=== PATIENT | male | born 1945 | race African-American/Black ===

== ENCOUNTER → 2017-06-27 | Outpatient (CLI) | payer MEDICARE, OTHER ==
[~2017-06-27] MED LIST: ASPI-482 PO; B CO1TAB10 PO; CANA300T PO; CHOL500045 PO; DABI150C PO; FISH1CAP PO; FURO40TA4 PO; GLIM4TAB2 PO; METF-620 PO; POTA20TA4 PO; SIMV20TA3 PO; SITA100T PO; SOTA150V PO; SOTA80TA48 PO
[2017-06-27 11:32] LABS: BASO % 1 % (0-3); EOS % 1 % (0-3); HEMATOCRIT 33.7 % (39.0-53.0); HEMOGLOBIN 10.7 g/dL (13.0-17.5); LYMPH % 20 % (24-48); MEAN CORPUSCULAR HEMOGLOBIN 27 pg (25-35); MEAN CORPUSCULAR HGB CONC 32 g/dL (31-37); MEAN CORPUSCULAR VOLUME 84 fL (79-100); MONO % 12 % (0-9); NEUT % 67 % (31-73); PLATELET COUNT 250 x10^3/uL (140-400); RED BLOOD COUNT 4.03 x10^6/uL (4.30-5.70); RED CELL DISTRIBUTION WIDTH 16.2 % (11.5-14.5); WHITE BLOOD COUNT 4.9 x10^3/uL (4.0-11.0)
[2017-06-27 11:43] LABS: INR 1.5 (0.8-1.1)
[2017-06-27 11:51] LABS: ALBUMIN 3.5 g/dL (3.4-5.0); CALCIUM 8.5 mg/dL (8.5-10.1); CREATININE 1.4 mg/dL (0.7-1.3); GFR 60.6; POTASSIUM 4.5 mmol/L (3.5-5.1)
== END | disposition home or self-care (01) ==
LOC: SURGPAT 10:28
PROVIDERS: ATTEND Surgery
DX: D12.2 Benign neoplasm of ascending colon (principal)
CPT/HCPCS: 36415; 80048; 82040; 85025; 85610; 85730

== ENCOUNTER → 2020-11-18 | Outpatient (CLI) | payer MEDICARE, OTHER ==
[2017-07-11 11:00] VITALS: BP 141/80
[~2020-11-18] MED LIST changes: -GLIM4TAB2 PO; +GLIM4TAB8 PO; -METF-620 PO; +METF10007 PO; +SIMV20TA18 PO; -SIMV20TA3 PO
--- NOTE | 2020-11-18 12:04 | RAD ---
EXAM: Right lower extremity venous Doppler sonogram. HISTORY: Pain and swelling. TECHNIQUE: Keller scale and color Doppler sonographic evaluation of the right lower extremity veins wit h spectral waveform analysis was performed. FINDINGS: There is normal color flow, normal compressibility and there are normal spectral waveforms in the common femoral, superficial femoral, popliteal, posterior tibial and greater saphenous veins. IMPRESSION: No Doppler evidence of lower extremity deep venous thrombosis. Electronically signed by: Diana Fernandes MD (11/18/2020 12:01 PM) [id number]
== END ==
LOC: US 11:29
PROVIDERS: ATTEND Family Medicine
DX: R22.41 Localized swelling, mass and lump, right lower limb (principal)
CPT/HCPCS: 93971

== ENCOUNTER → 2020-12-17 | Outpatient (CLI) | payer MEDICARE, OTHER ==
[2017-07-11 11:00] VITALS: BP 141/80
--- NOTE | 2020-12-18 11:28 | RAD ---
EXAMINATION: US DPLX PELVIS LIMITED US 12/17/2020 2:48 PM INDICATION: Possible pelvic mass compressing common femoral artery or vein. Right leg numbness. TECHNIQUE: Limited grayscale and color and spectral Doppler ultrasound of the right groin. COMPARISON: Right lower extremity DVT ultrasound 11/18/2020. FINDINGS: The right common femoral artery and vein and superficial femoral artery and vein have normal color Do ppler flow. The common femoral artery has biphasic waveform with normal peak systolic velocity of 160 cm/s. The common femoral vein has normal waveform. There is no obvious soft tissue mass. The bladder is unremarkable. IMPRESSION: Grossly patent right common and superficial femoral arteries and veins. No obvious soft t issue mass in the right groin or visualized portion of the pelvis. If there is persistent concern, re commend CT of the pelvis to further evaluate. Electronically signed by: Kay Ndiaye MD (12/18/2020 11:25 AM) [id number]
== END ==
LOC: US 15:20
PROVIDERS: ATTEND Family Medicine
DX: C76.3 Malignant neoplasm of pelvis (principal); M79.89 Other specified soft tissue disorders
CPT/HCPCS: 76857